=== PATIENT | female | born 1955 | race Caucasian/White ===

== ENCOUNTER 2016-08-15 20:17 | Emergency (ER) | payer OTHER ==
[~2016-08-15 20:17] MED LIST: ALPRAZOLAM PO; BP MED PO; CELEXA PO; GLUCOTROL XL PO; LORTAB PO; PRILOSEC PO; ZOCOR PO
[2016-08-15] MEDS ORDERED: HYDROCHLOROTHIAZIDE PO (20:27)
[2016-08-15] MEDS ORDERED: CETIRIZINE (20:27)
== END 2016-08-15 22:28 | disposition home or self-care (01) ==
LOC: SED 20:17
DX: T78.3XXA Angioneurotic edema, initial encounter (principal); E11.9 Type 2 diabetes mellitus without complications; I10 Essential (primary) hypertension; Z98.890 Other specified postprocedural states
CPT/HCPCS: 82947; 96374; 96375; 96376; 99284; J1100; J1200

== ENCOUNTER 2016-11-12 03:06 | Observation (INO) | payer OTHER ==
--- NOTE | ~2016-11-12 | HP ---
Unit #: [id number] #: [id number] Patient: WILMAN JETER [id number] [address] [place], [place] [address] [id number] I MR#: [id number] NAME: WILMAN JETER ROOM: 322 Age: 61 Sex: F Admission Date: 11/12/2016 : 1955 Attending Physician: Moe Hutchinson M.D. Primary Care Physician: [facility]. HISTORY AND PHYSICAL HISTORY OF PRESENT ILLNESS The patient is a 61-year-old woman who presented to the emergency room last night with symptoms of swelling over her left side of the face and lips, sudden onset, duration prior to arrival, time continuous, intensity moderate, not aware of any aggravating or relieving factors. PAST MEDICAL HISTORY Diabetes and hypertension. ALLERGIES No known drug allergies. SOCIAL HISTORY Patient is a smoker. FAMILY HISTORY Not available. HOME MEDICATIONS 1. Glucotrol XL 5 mg p.o. q.a.m. 2. Hydrochlorothiazide 25 mg p.o. daily. 3. K-Dur 20 mEq daily. 4. Zantac 150 mg b.i.d. 5. Norvasc 10 mg p.o. daily. 6. Lipitor 20 mg p.o. daily. REVIEW OF SYSTEMS As per HPI. Rest of review of systems is negative. PHYSICAL EXAMINATION GENERAL: Awake, alert, well nourished. HEENT: Head atraumatic/normocephalic. Mild swelling over the left cheek. Oropharynx is clear. Mucous membranes moist. NECK: Trachea midline. Neck supple. No stridor. CARDIAC: Regular rate and rhythm. LUNGS: Clear to auscultation bilaterally. ABDOMEN: Soft, nontender and nondistended. EXTREMITIES: No peripheral edema. No cyanosis. No acute focal deficits. ASSESSMENT AND PLAN Episode of angioedema, allergic reaction, unclear etiology. Plan is to discontinue hydrochlorothiazide, monitor the patient, continue Glucotrol for diabetes mellitus, continue Norvasc for hypertension, Benadryl p.r.n. Unit #: [id number] #: [id number] Patient: WILMAN JETER Dictated by Neeta Sykes/fadi TD: 11/12/2016 16:16 JOB #: [id number] HISTORY AND PHYSICAL Page 1 of 1 X X HISTORY AND PHYSICAL
--- NOTE | ~2016-11-12 | CR72 ---
[facility] A Service of [facility] & [facility] RADIOLOGY TEXT RESULTS PATIENT: WILMAN JETER LOCATION: [facility] 322- : [birth year] UNIT #: [id number] AGE: [address]: PEREZ LIUUJ V SEX: F ORDER DR: [id number] [facility] [address] [place], [place] [address] [id number] MR#: [id number] Acc #: [id number] NAME: WILMAN JETER : 1955 SEX: F STUDY DATE/TIME: 11/12/2016 4:00 UNIT: [address] ROOM: [facility] STUDY DESCRIPTION: CR Chest Single View Portable Attending Physician: Jayden Driver M.D. Ordering Physician: Harish Ortiz M.D. [facility] REPORT This report is preliminary unless electronic signature is present EXAM Chest x-ray 11/12/2016 HISTORY 61-year-old female in the ED complaining of 4-day history of cough. She also notes some facial swelling. TECHNIQUE AP portable chest x-ray. FINDINGS Heart size and pulmonary vascularity are within normal limits given AP portable technique. The lungs appear clear. No visible pulmonary infiltrate or pleural effusion. IMPRESSION Negative chest. Dictated by... Lavell Huff M.D. THIS IS AN ELECTRONICALLY VERIFIED REPORT Lavell Huff M.D. at 11/12/2016 4:47 PM BARTOLOME/shelton TD: 11/12/2016 12:55 JOB #: [id number] MEDICAL IMAGING REPORT Page 1 of 1 COPY
--- NOTE | ~2016-11-12 | EKG ---
PATIENT: WILMAN JETER UNIT #: [id number] Ventricular Rate: 94 BPM Atrial Rate: 94 BPM P-R Interval: 184 ms QRS Duration: 86 ms Q-T Interval: 388 ms QTC Calculation(Bezet): 485 ms P [place]: 44 degrees Calculated R [place]: 38 degrees Calculated T [place]: 20 degrees Diagnosis Line: Normal sinus rhythm Diagnosis Line: Possible Left atrial enlargement Diagnosis Line: Prolonged QT Diagnosis Line: Abnormal ECG Diagnosis Line: No previous ECGs available Diagnosis Line: Confirmed by GAMA CAMACHO MD ([id number]) on Diagnosis Line: 11/12/2016 12:18:00 PM INTERPRETING MD: SARA
--- NOTE | ~2016-11-12 | DS ---
Unit #: [id number] #: [id number] Patient: WILMAN JETER [id number] [address] [address] [id number] MR#: [id number] NAME: WILMAN JETER ROOM: 322 Age: 61 Sex: F Admission Date: 11/12/2016 : 1955 Discharge Date: 11/13/2016 Attending Physician: Moe Hutchinson M.D. [facility] SUMMARY PERTINENT HISTORY AND HOSPITAL COURSE The patient is a 61-year-old woman who presented to the emergency room with symptoms of swelling over the left side of the face and over her lips. She had no difficulty swallowing. No difficulty in breathing. Her hydrochlorothiazide was discontinued. There is a sulfa component to the medication and possible hypersensitivity to the medication. The patient was also noted to be hypokalemic. She is to continue on potassium tablets, potassium chloride 10 mEq p.o. once daily, with a followup check with her primary care physician. DISCHARGE MEDICATIONS 1. Lipitor 20 mg p.o. at bedtime. 2. Zantac 150 mg p.o. b.i.d. 3. Potassium chloride 10 mEq p.o. once daily. 4. Glipizide 5 mg p.o. every morning. DISCHARGE INSTRUCTIONS 1. Follow up with tableau analyst as an outpatient. 2. Follow up with primary care physician. 3. Continue potassium supplementation for hypokalemia and recheck with primary care physician. DISCHARGE DIAGNOSES 1. Angioedema. 2. Diabetes mellitus. 3. Hypokalemia. Dictated by... Neeta Sykes/roberta TD: 11/14/2016 06:51 JOB #: [id number] Unit #: [id number] #: [id number] Patient: WILMAN JETER DISCHARGE SUMMARY Page 1 of 1 X X DISCHARGE SUMMARY
[~2016-11-12 03:06] MED LIST changes: +CETIRIZINE; +HYDROCHLOROTHIAZIDE PO
[2016-11-12 04:57] LABS: POC - CKMB 3.6 ng/mL (0.0-7.9); POC - TROPONIN <0.05 ng/mL (<=0.05)
[2016-11-12 05:10] LABS: BASOPHIL# 0.1 X10e3 (0-0.3); BASOPHIL% 0.5 % (0-2.5); EOSINOPHIL# 0.2 X10e3 (0-0.7); EOSINOPHIL% 1.3 % (0.0-7.0); HEMATOCRIT 40.8 % (35.0-45.0); HEMOGLOBIN 13.5 gm/dL (12.0-16.0); LYMPHOCYTE# 1.9 X10e3 (1.0-3.5); LYMPHOCYTE% 15.7 % (17.0-45.0); MEAN CELL VOLUME 78.1 FL (83-96); MEAN CORPUSCULAR HEMOGLOBIN 25.7 PG (28-34); MEAN PLATELET VOLUME 7.7 FL (6.5-11.5); MONOCYTE# 1.1 X10e3 (0-1.0); MONOCYTE% 8.8 % (3.0-12.0); NEUTROPHIL# 8.8 X10e3 (1.5-7.1); NEUTROPHIL% 73.7 % (40-75); PLATELET COUNT 302 X10e3 (140-420); RED BLOOD COUNT 5.22 X10e (3.90-5.30)
[2016-11-12 05:11] LABS: DIFF IND NO
[2016-11-12 05:55] LABS: ALBUMIN SERUM 3.9 g/dL (3.5-5.0); BILIRUBIN, DIRECT 0.1 mg/dL (0.0-0.2); BILIRUBIN,INDIRECT 0.6 mg/dL (0.0-0.9); BILIRUBIN,TOTAL 0.7 mg/dL (0.2-2.0); CREATININE SERUM 0.5 mg/dL (0.6-1.4); POTASSIUM 3.1 mmol/L (3.5-5.1); PROTEIN TOTAL SERUM 7.7 g/dL (6.0-8.3)
[2016-11-12] MEDS ORDERED: K-TAB ER20 MEQ PO (06:41)
[2016-11-12] MEDS ORDERED: NORVASC10 MG PO (06:42)
[2016-11-12] MEDS ORDERED: ZANTAC150 M1 PO (06:42)
[2016-11-12] MEDS ORDERED: LIPITOR20 MG PO (06:43)
[2016-11-12 06:47] LABS: POC - TROPONIN <0.05 ng/mL (<=0.05)
[2016-11-13] MEDS ORDERED: K-DUR20 ME1 PO (10:44)
== END 2016-11-13 12:50 | disposition home or self-care (01) ==
LOC: CED 03:06 → CEDOF 06:57 → C3A PCU 06:57 → CED 06:57 → CEDOF 08:53 → C3A PCU 08:53
PROVIDERS: Emergency Medicine
DX: T78.3XXA Angioneurotic edema, initial encounter (principal); E11.9 Type 2 diabetes mellitus without complications; I10 Essential (primary) hypertension; E87.6 Hypokalemia; F17.210 Nicotine dependence, cigarettes, uncomplicated; Z79.84 Long term (current) use of oral hypoglycemic drugs; Z79.899 Other long term (current) drug therapy
CPT/HCPCS: 36415; 71010; 80048; 80076; 82553; 83880; 84484; 85025; 92610; 93005; 94640; 96374; 96375; 99285; G0378; G8996-GN; G8997-GN; G8998-GN; J1200; J2930

== ENCOUNTER 2016-11-26 05:02 | Emergency (ER) | payer OTHER ==
[~2016-11-26] VITALS: Ht 160 cm; Wt 77.1 kg
[~2016-11-26 05:02] MED LIST changes: +K-DUR20 ME1 PO; +K-TAB ER20 MEQ PO; +LIPITOR20 MG PO; +NORVASC10 MG PO; +ZANTAC150 M1 PO
[2016-11-26 05:56] LABS: BASOPHIL# 0.1 X10e3 (0-0.3); BASOPHIL% 0.7 % (0-2.5); EOSINOPHIL# 0.2 X10e3 (0-0.7); EOSINOPHIL% 1.9 % (0.0-7.0); HEMATOCRIT 45.1 % (35.0-45.0); HEMOGLOBIN 15.1 gm/dL (12.0-16.0); LYMPHOCYTE# 2.1 X10e3 (1.0-3.5); LYMPHOCYTE% 22.6 % (17.0-45.0); MEAN CELL VOLUME 78.7 FL (83-96); MEAN CORPUSCULAR HEMOGLOBIN 26.3 PG (28-34); MEAN CORPUSCULAR HGB CONC 33.4 g/dL (30-36); MEAN PLATELET VOLUME 7.7 FL (6.5-11.5); MONOCYTE# 0.8 X10e3 (0-1.0); MONOCYTE% 8.7 % (3.0-12.0); NEUTROPHIL# 6.2 X10e3 (1.5-7.1); NEUTROPHIL% 66.1 % (40-75); PLATELET COUNT 349 X10e3 (140-420); RED BLOOD COUNT 5.72 X10e (3.90-5.30); RED CELL DISTRIBUTION WIDTH 15.1 % (11.0-15.5); WHITE BLOOD COUNT 9.4 X10e3 (4.0-10.5)
[2016-11-26 05:59] LABS: DIFF IND NO
[2016-11-26 06:24] LABS: BUN/CREATININE RATIO 21.42; CREATININE SERUM 0.7 mg/dL (0.6-1.4); GLOM FILT RATE Estimated 94.8 mL/min (>60); POTASSIUM 3.4 mmol/L (3.5-5.1)
[2016-11-26] MEDS ORDERED: LIPITOR20 MG PO (10:20)
[2016-11-26] MEDS ORDERED: GLIPIZIDE XL5 MG PO (10:20)
[2016-11-26] MEDS ORDERED: PATIENT'S PHARMACY (10:20)
[2016-11-26] MEDS ORDERED: K-DUR20 ME1 PO (10:20)
[2016-11-26] MEDS ORDERED: NORVASC10 MG PO (10:20)
[2016-11-26] MEDS ORDERED: ZANTAC150 M1 PO (10:21)
[2016-11-26] MEDS ORDERED: HYDROCHLOROTHIA25 MG PO (10:21)
== END 2016-11-26 14:10 | disposition home or self-care (01) ==
LOC: CED 05:02 → CEDOF 10:00 → CED 10:00 → CEDOF 10:50 → CED 10:50
PROVIDERS: Nurse Practitioner Family
DX: T78.3XXA Angioneurotic edema, initial encounter (principal); E11.9 Type 2 diabetes mellitus without complications; I10 Essential (primary) hypertension; F17.210 Nicotine dependence, cigarettes, uncomplicated; Z79.899 Other long term (current) drug therapy
CPT/HCPCS: 36415; 80048; 85025; 96374; 96375; 99284; J1200; J2930